=== PATIENT | male | born 1945 | race Caucasian/White ===

== ENCOUNTER 2025-09-07 13:23 | Outpatient (AMB) | payer MEDICARE, SELFPAY ==
--- OUTSIDE RECORDS SUMMARY | 2025-09-01 23:59 | XMS_ITS | Continuity of Care Document ---
Author Organization [facility] Address [address] [place] [address] Alexis herman, [address] [place] [address]- Care Team Providers Care Sole Painter Name Role Phone Luke CUNNINGHAM, Jaymie Pearce Primary Care Physician [id number] Date(s): 08/02/25 - 09/01/25 [facility] [address] [place] [address] Drive [address] [place], [place] [address] [[email or web address]] Attending Physician: Aaliyah Sparks Admitting Physician: Aaliyah Sparks Referring Physician: Aaliyah Sparks Referring Physician: Elsa Marinelli Encounter Type: Triage Allergies, Adverse Reactions, Alerts No Known Allergies Medications amlodipine-benazepril 10 mg-20 mg oral capsule 1 capsule, By Mouth, Daily, # 30 capsule, 0 Refills, Maintenance, 11/27/21 2:44:00 PM EST, Capsule, Partial fill upon patient request if the prescription is for a schedule II opioid drug. Start Date: 11/27/21 Status: Ordered Medication Dispense Status: Completed Quantity: 30.0 Unit: capsule Total Allowed Fills: 1 Fills Dispensed: 0 aspirin 81 mg oral tablet 1 tablet = 81 mg, By Mouth, Daily, # 30 tablet, 0 Refills, Maintenance, 10/20/11 3:25:41 PM EST, Tablet Start Date: 10/20/11 Status: Ordered Medication Dispense Status: Completed Quantity: 30.0 Unit: tablet Total Allowed Fills: 1 Fills Dispensed: 0 Calcium Citrate By Mouth, 2 times a day, 0 Refills, Maintenance, 10/03/20 1:58:00 PM EST, Partial fill upon patientrequest if the prescription is for a schedule II opioid drug. Start Date: 10/03/20 Status: Ordered Medication Dispense Status: Completed Total Allowed Fills: 1 Fills Dispensed: 0 cyclobenzaprine 10 mg oral tablet 10 mg, 1, tablet, By Mouth, 3 times a day, PRN, # 20 tablet, Refills 0, Tot. Refills 0, Acute 03/02/26 4:58:00 PM EDT, for spasm, 03/01/25 4:57:00 PM EDT, Route to Pharmacy Electronically, [facility], Partial fill upon patient request if the prescription is for a schedule II opioid drug., 168, cm, 03/01/25 14:09:00 EDT, Height, 75.6, kg, 03/01/25 14:09:00 EDT, Dry Weight Start Date: 03/01/25 Stop Date: 03/02/26 Status: Ordered Medication Dispense Status: Completed Quantity: 20.0 Unit: tablet Total Allowed Fills: 1 Fills Dispensed: 0 Finasteride = 5 mg, By Mouth, Daily, 0 Refills, Maintenance, 01/29/15 2:30:49 PM EDT Start Date: 01/29/15 Status: Ordered Medication Dispense Status: Completed Total Allowed Fills: 1 Fills Dispensed: 0 Golytely - oral powder for reconstitution 240 mL, By Mouth, Every 15 minutes, Start prep at 5 pm the night before the procedure. Take 1/2 of the prep Take the othe 1/2 6 hours before the procedure, # 1 each, 0 Refills, Maintenance, 01/18/25 1:00:00 PM EDT, REC Powder, [facility], Ok to substibute any PEG 3350 solution, 240 mL By Mouth Every 15 minutes,Instr:Start prep at 5 pm the night before the procedure. Take 1/2 of the prep; Take the othe 1/2 6 hours before the procedure, 170, cm, 11/30/23 15:50:00 EST, Height Start Date: 01/18/25 Status: Ordered Medication Dispense Status: Completed Quantity: 1.0 Unit: each Total Allowed Fills: 1 Fills Dispensed: 0 ibuprofen 600 mg oral tablet 600 mg, 1, tablet, By Mouth, Every 8 hours, # 30 tablet, Refills 0, Tot. Refills 0, Acute 03/03/26 4:58:00 PM EDT, 03/01/25 4:54:00 PM EDT, Route to Pharmacy Electronically, [facility], Partialfill upon patient request if the prescription is for a schedule II opioid drug., 168, cm, 03/01/25 14:09:00 EDT, Height, 75.6, kg, 03/01/25 14:09:00 EDT, Dry Weight Start Date: 03/01/25 Stop Date: 03/03/26 Status: Ordered Medication Dispense Status: Completed Quantity: 30.0 Unit: tablet Total Allowed Fills: 1 Fills Dispensed: 0 metFORMIN 500 mg oral tablet 1 tablet = 500 mg, By Mouth, 2 times a day, 0 Refills, Maintenance, 11/16/19 11:22:00 AM EST Start Date: 11/16/19 Status: Ordered Medication Dispense Status: Completed Total Allowed Fills: 1 Fills Dispensed: 0 Simvastatin Tablet 5 mg, By Mouth, Daily at bedtime, Maintenance, 10/20/11 3:25:57 PM EST Start Date: 10/20/11 Status: Ordered Medication Dispense Status: Completed Total Allowed Fills: 1 Fills Dispensed: 0 Vitamin D3 By Mouth, 0 Refills, Maintenance, 07/02/17 9:14:16 AM EDT Start Date: 07/02/17 Status: Ordered Medication Dispense Status: Completed Total Allowed Fills: 1 Fills Dispensed: 0 Problem List Condition Confirmation Course Effective Dates Status H ealth Status Informant Benign prostatic hyperplasia Confirmed Active Hematuria Confirmed Active Pancreatic cyst Confirmed Active Diabetes Confirmed Active Hydronephrosis Confirmed Active Hyperlipidemia Confirmed Active Impotence of organic origin Confirmed Active Kidney stones Confirmed Active Kidney failure Confirmed Active Social History Social History Type Response Smoking Status Former smoker; Type: Cigarettes; Other: Quit 35 yrs ago; Total pack years: 2; entered on: 07/02/17 Sex Sex Representation Male (finding) Patient Care team information Care Team Personnel Name: Jaymie Butler NP Position: S Outreach Member Role: PCP Address: [address] [place] [address] Telecom: Care Team Related Persons Name: LANIE AVILEZ Insurance Providers Guarantor name: CLAUDIA [facility] Information #: 1 Payer: [facility] Payer Identifier: DARYL Member Number: [id number] Group Number: [id number] Subscriber Identifier: DARYL Relationship to Subscriber: self Coverage Type: NA Coverage Verification Date: DARYL Telecom: Address: [facility] Plan Information #: 2 Payer: MEDICARE B Payer Identifier: DARYL Member Number: [id number] Group Number: [id number] Subscriber Identifier: DARYL Relationship to Subscriber: self Coverage Type: NA Coverage Verification Date: DARYL Telecom: Address:
[2025-09-07 13:32] VITALS: BMI 26.0
--- NOTE | 2025-09-07 13:32 | A.SPINEOV_ITS ---
Vital Signs 09/07/25 13:32 Height 5 ft 7 in Weight 166 lb BMI 26.0 Intake Visit Reasons: LBP Intake Note: Mr. Carrero is here today c/o low back pain. Specialist Employee Labor Relations Required: No Allergies No Known Allergies Allergy (Verified 09/07/25 13:32) Physical Exam Vital Signs: BMI result Body Mass Index 26.0 Assessment & Plan Assessment & Plan (1) Chronic SI joint pain: Code(s): M53.3 - Sacrococcygeal disorders, not elsewhere classified; G89.29 - Other chronic pain Category: Medical Plan This is a very nice 80-year-old gentleman who is here to be evaluated today for pain in the left side of his low back that he has had since about December of earlier this year. He thinks it may have been related to a fall he took when he was trying to get it out of the way of a ladder that was falling down and he fell backwards and landed on his back. He localizes the pain over the left side of the low back, almost right over the SI joint. He does not have any shooting pain down his leg. He has no cauda equina symptoms. As of right now he just takes Advil or Tylenol occasionally if he gets severe pain. He was seen by Dr. Dumont at [facility] who told him that his MRI did not show enough findings to justify surgery. He underwent physical therapy earlier this year and that did seem to help quite a bit too. He sees a chiropractor as well. He came in today for 2nd opinion after he found Dr. Auguste name online. PMH: He is a diabetic but very well controlled, history of high cholesterol, hernia repair, kidney stone, TURP Social hx: He does not smoke cigarettes, does not drink, he does use marijuana most days to relax in the evenings Medications: Finasteride, amlodipine, metformin, potassium, simvastatin Allergies: None Physical exam: Awake alert oriented no acute distress, able to independently stand out of a chair, walk down the hallway, normal gait and stride length, he is able to independently get up on examining table without any difficulty. Strength normal, reflexes diminished at the patella and the Achilles. 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 Impression: 80-year-old gentleman presents for 2nd opinion on his lumbar spine after took a fall in December in his had very mild left-sided low back pain but persistent since that time. No radicular or claudicating symptoms. His MRI does show multiple findings, none of which would explain his symptoms. Much of what he has is age-related and chronic findings that have been with him for years. More less everything on the MRI appears to be asymptomatic. Given the history of trauma, and the location of the symptoms, SI joint etiology is more likely than anything else. Because he has just a mild discomfort and is not really even taking [id number] medications with any degree of regularity, there is no need for any kind of intervention or further workup. I think in the end this would just go away on its own and have told him to avoid surgery if it is offered to him unless he starts to get severe lower extremity symptoms in which case I told him to come back and see me and we can re-evaluate. Thank you for allowing us to care for your patient. The total time spent with this visit with this patient was 45 minutes reviewing history, physical exam, lumbar imaging review, and implementation of treatment plan or further diagnostic testing Carlos Auguste MD,PhD [facility] Coding Level of Care Code New Pt Level 4 (15925) Diagnoses Chronic SI joint pain M53.3; G89.29
--- OUTSIDE RECORDS SUMMARY | 2025-09-07 18:52 | XMS_ITS | Encounter Summary ---
Author Organization [employer] Address [address] [facility] [address] [place] [address] Care Team Providers Care End Packer Name Role Phone Unavailable Primary Care Provider Unavailabl e Encounter Details Date Type Department Care Team (Latest Contact Info) Description 07/31/2022 Abstract [facility] Dental, Provider, DDS Social History Tobacco Use Types Packs/Day Years Used Date Smoking Tobacco: Never Assessed Sex and Gender Information Value Date Recorded Sex Assigned at Male 10/02/2022 11:59 AM EST Legal Sex Male 5:36 PM EDT Gender Identity Male 10/02/2022 11:59 AM EST Sexual Orientation Choose not to disclose 2022 3:24 PM EST documented as of this encounter Plan of Treatment Not on file documented as of this encounter Visit Diagnoses Not on filedocumented in this encounter
--- OUTSIDE RECORDS SUMMARY | 2025-09-07 18:52 | XMS_ITS | Encounter Summary ---
Author Organization [employer] Address [address] [facility] [address] [place] [address] Care Team Providers Care Dog Show Judge Name Role Phone Unavailable Primary Care Provider Unavailabl e Encounter Details Date Type Department Care Team (Latest Contact Info) Description 02/16/2019 [facility] Dental, Provider, DDS Social [...]
--- OUTSIDE RECORDS SUMMARY | 2025-09-07 18:52 | XMS_ITS | Encounter Summary ---
Author Organization [employer] Address [address] [facility] [address] [place] [address] Care Team Providers Care Investigative Analyst Name Role Phone Unavailable Primary Care Provider Unavailabl e Encounter Details Date Type Department Care Team (Latest Contact Info) Description 08/15/2021 [facility] Dental, Provider, DDS Social [...]
--- OUTSIDE RECORDS SUMMARY | 2025-09-07 18:52 | XMS_ITS | Encounter Summary ---
Author Organization [employer] Address [address] [facility] 7 [place] [address] Care Team Providers Care Locomotive Engineer Diesel Name Role Phone Unavailable Primary Care Provider Unavailabl e Encounter Details Date Type Department Care Team (Latest Contact Info) Description 02/07/2021 [facility] Dental, Provider, DDS Social [...]
--- OUTSIDE RECORDS SUMMARY | 2025-09-07 18:52 | XMS_ITS | Clinical Summary ---
Author Organization [employer] Address [address] [facility] [address] [place] [address] Care Team Providers Care Load Dispatcher Name Role Phone Unavailable Primary Care Provider Unavailabl e Allergies No known active allergies Medications No known medications Social History Tobacco Use Types Packs/Day Years Used Date Smoking Tobacco: Never Assessed Sex and Gender Information Value Date Recorded Sex Assigned at Male 10/02/2022 11:59 AM EST Legal Sex Male 5:36 PM EDT Gender Identity Male 10/02/2022 11:59 AM EST Sexual Orientation Choose not to disclose 2022 3:24 PM EST Last Filed Vital Signs Vital Sign Reading Time Taken Comments Blood Pressure 119/62 10/02/2022 3:43 PM EST Pulse 63 10/02/2022 4:01 PM EST Temperature 37 C (98.6 F) 10/02/2022 3:43 PM EST Respiratory Rate - - Oxygen Saturation - - Inhaled Oxygen Concentration - - Weight - - Height - - Body Mass Index - - Plan of Treatment Health Maintenance Due Date Last Done Comments Depression Screening 1945 Lipid Panel 1945 SDOH Screening 1947 Alcohol/Substance Use Screening 1959 Tobacco Screening 1959 Hepatitis C Screening 1965 Pneumococcal Vaccine: 50+ Years (1 of 1 - PCV) 1997 11/24/2013, 11/11/2005 Zoster Vaccines (2 of 3) 03/05/2009 01/08/2009 DTaP/Tdap/Td Vaccines (2 - Tdap) 05/16/2021 05/16/2011 Dental X-Ray: Full Mouth 07/03/2021 07/02/2018, 12/2004 RSV Patients and Patients Aged 60 years or older (1 - 1-dose 75+ series) 2022 Dental Oral Exam 09/18/2024 03/17/2024, , 08/15/2021, Additional history exists Dental Prophylaxis 09/18/2024 03/17/2024, 1 , 08/15/2021, Additional history exists Dental X-Ray: Bitewings 03/18/2025 03/17/20 24, 07/31/2022, 02/07/2021, Additional history exists COVID-19 Vaccine ( season) 2025 07/09/2023, 10/06/2022, 02/16/2022, Additional history exists Influenza Vaccine (#1) 2025 , 09/11/2021, 08/09/2020, Additional history exists HIB Vaccines Aged Out No longer eligi ble based on patient's age to complete this topic HPV Vaccines Aged Out No longer eligi ble based on patient's age to complete this topic Hepatitis A Vaccines Aged Out No long er eligible based on patient's age to complete this topic Hepatitis B Vaccines Aged Out No long er eligible based on patient's age to complete this topic IPV Vaccines Aged Out No longer eligi ble based on patient's age to complete this topic Meningococcal B Vaccine Aged Out No l onger eligible based on patient's age to complete this topic Meningococcal Vaccine Aged Out No dave marianne eligible based on patient's age to complete this topic RSV under 20 months Aged Out No longe r eligible based on patient's age to complete this topic Rotavirus Vaccines Aged Out No longer eligible based on patient's age to complete this topic Procedures Procedure Name Priority Date/Time Associated Diagnosis Comments Full PROPHYLAXIS - ADULT Routine 024 11:10 AM EDT BITEWINGS - 4 RADIOGRAPHIC IMAGES Routine 03/17/2024 11:10 AM EDT PERIODIC ORAL EVALUATION - ESTABLISHED PATIENT Routine 03/17/2024 11:10 AM EDT INTRAORAL - COMPLETE SERIES OF RADIOGRAPHIC IMAGES Routine 07/02/2018 12:00 AM EDT from Last 3 Months or Most Recently Relevant to Health Maintenance Insurance DENTAL - HSN PARTIAL (MEDICAID) DENTAL - HSN PARTIAL (MEDICAID)
== END 2025-09-07 14:17 | disposition home or self-care (01) ==
LOC: HO.HNS 13:23
PROVIDERS: Visit Provider Physician Assistant
DX: M53.3 Sacrococcygeal disorders, not elsewhere classified (principal); G89.29 Other chronic pain
CPT/HCPCS: 99204

== ENCOUNTER → 2025-09-07 13:23 | Outpatient (BNVA) | payer MEDICARE, SELFPAY | PROVIDERS: Visit Provider Physician Assistant | DX: M53.3 Sacrococcygeal disorders, not elsewhere classified (principal); G89.29 Other chronic pain | CPT/HCPCS: 99202 ==